=== PATIENT | male | born 1945 | race Two or more races ===

== ENCOUNTER 2016-08-21 20:59 | Inpatient (IN) | payer MEDICARE, OTHER ==
[~2016-08-21] VITALS: Ht 175.3 cm; Wt 81.4 kg
--- NOTE | 2016-08-21 21:05 | NUR ---
To bed 5 a 70 yo male bibra with c/o increased hr and increased bp at home. Upon arrival to er patient is aaox4, no s/s of acute distress. Breathing even and unlabored. On the monitor patient is uncontrolled afib at 120-140, ekg done, SBP is >150, DBP is >100. Patient reported a mild tingling sensation on the left chest at 2/10, however denies while in er. O2 support at 2lpm via nc, pavan well. Encouraged deep breathing. Initiated comfort measures. Gowned. Dr Miller at bedside for eval.
[2016-08-21] MEDS ORDERED: DILTIAZEM HCL 25 MG IV ONE ×2 (21:15→22:26)
[2016-08-21 21:22] LABS: BASOPHILS # (AUTO) 0.1 /CMM (0.0-0.2); BASOPHILS % (AUTO) 0.8 % (0.0-2.0); EOSINOPHILS # (AUTO) 0.3 /CMM (0.0-0.7); EOSINOPHILS % (AUTO) 4.7 % (0.0-6.0); HEMATOCRIT 48 % (39-51); HEMOGLOBIN 16.4 g/dL (13.5-17.5); LYMPHOCYTES # (AUTO) 1.6 /CMM (0.8-4.8); LYMPHOCYTES % (AUTO) 24.1 % (20.0-44.0); MEAN CORPUSCULAR HEMOGLOBIN 32 PG (26.0-33.0); MEAN CORPUSCULAR HGB CONC 34 g/dl (31.0-36.0); MEAN CORPUSCULAR VOLUME 96 fL (80-96); MONOCYTES # (AUTO) 0.5 /CMM (0.1-1.30); NEUTROPHILS # (AUTO) 3.9 /CMM (1.8-8.9); NEUTROPHILS % (AUTO) 62.4 % (43.0-81.0); PLATELET COUNT (AUTO) 191 /CMM (150-450); RDW COEFFICIENT OF VARIATION 12.6 (11.5-15.0); RED BLOOD CELL COUNT(AUTO) 5.07 MIL/uL (4.5-6.0); WHITE BLOOD COUNT (AUTO) 6.4 K/uL (4.3-11.0)
[2016-08-21 21:24] LABS: APPEARANCE,URINE Clear (CLEAR); BILIRUBIN,URINE Negative (NEGATIVE); BLOOD, URINE Trace-intact Ery/uL (NEGATIVE); COLOR,URINE Yellow (YELLOW); KETONES,URINE Negative (NEGATIVE); LEUKOCYTE ESTERASE ,URINE Negative (NEGATIVE); NITRITE, URINE Negative (NEGATIVE); PROTEIN,URINE Negative (NEGATIVE); UGLUCOSE Negative (NEGATIVE); UROBILINOGEN,URINE 0.2 EU/dL (0.2)
[2016-08-21] MEDS ORDERED: DILTIAZEM HCL 50 MG IV IV ONE ×2 (21:30→22:30)
[2016-08-21 21:32] LABS: CARBON DIOXIDE 27 mmol/L (21-32); CHLORIDE 106 mmol/L (98-107); CREATININE 1.3 mg/dL (0.6-1.3); GLUCOSE 142 mg/dL (74-106); POTASSIUM 3.5 mmol/L (3.5-5.1); SODIUM SERUM 140 mmol/L (136-145); UREA NITROGEN, BLOOD 19 mg/dL (7-18)
[2016-08-21 21:34] LABS: INR 1.02 (0.87-1.13); PROTHROMBIN TIME 10.6 SECS (9.5-12.7)
[2016-08-21 21:37] LABS: ADD URINE CULTURE NO; BACTERIA,URINE None seen /HPF (None Seen); SQUAMOUS EPITHELIAL CELL,UR Few /HPF (None Seen); WBC,URINE 0-2 /HPF (0-3)
[2016-08-21 21:39] LABS: TROPONIN I < 0.017 ng/mL (0.00-0.056)
[2016-08-21 21:44] LABS: ALANINE AMINOTRANSFERASE 31 U/L (12-78); ALKALINE PHOSPHATASE 87 U/L (46-116); ASPARTATE AMINOTRANSFERASE 19 U/L (15-37); B-TYPE NATRIURETIC PEPTIDE 186 PG/ML (0-125); BILIRUBIN,DIRECT 0.1 mg/dL (0.0-0.2); BILIRUBIN,TOTAL 0.4 mg/dL (0.2-1.0); TOTAL PROTEIN, SERUM 7.7 g/dL (6.4-8.2)
[2016-08-21] MEDS ORDERED: RANI150T12 PO (23:10)
[2016-08-21] MEDS ORDERED: ATOR20TA PO (23:10)
[2016-08-21] MEDS ORDERED: AMLO10TA2 PO (23:10)
[2016-08-21] MEDS ORDERED: ASPI81TA2 PO (23:10)
[2016-08-21] MEDS ORDERED: DABI150C PO (23:10)
[2016-08-21] MEDS ORDERED: LOSA50TA21 PO (23:10)
[2016-08-21] MEDS ORDERED: LANS30CA56 PO (23:10)
--- NOTE | 2016-08-21 23:14 | NUR ---
report given to Naomi VAZQUEZ for nicole.
--- NOTE | 2016-08-21 23:33 | NUR ---
transported to room 312-2, tele bed via [facility] protocol, no incident noted. no futher complaints.
--- NOTE | 2016-08-21 23:45 | NUR ---
TELE CONSUMER ANALYST INITIAL NOTES ADMIT PT FROM ER VIA JAMES[facility]KYE ACCOMPANIED BY ER NURSE AND TECH. PT IS ALERT ORIENTED X4 , AMBULATORY, WITH HEPLOCK ON HIS RIGHT HAND GAUGE 20 PATENT AND INTACT. AWARE WHERE HE AT. DENIES ANY CHEST PAIN OR ANY DISCOMFORT. HE STATED"I'M OK . I'M JUST HERE FOR OBSERVATION . A-FIB ON TELE MONITOR. HEART RATE 93. KEPT HIM COMFORTABLE AT ALL TIMES. SNACKS OFFERED BUT REFUSED TO EAT JUST WATER. WILL CONTINUE TO MONITOR.
[2016-08-21 23:52] VITALS: BP 143/80
[2016-08-22] VITALS (9 sets, daily range): BP systolic 109–127; BP diastolic 70–86
[2016-08-22] MEDS ORDERED: ONDANSETRON HCL/PF 4 MG/2 ML VIAL IVP PRN (01:30)
[2016-08-22] MEDS ORDERED: ZOLPIDEM TARTRATE 5 MG TABLET PO PRN (01:30)
[2016-08-22] MEDS ORDERED: MAGNESIUM HYDROXIDE 30 ML UDC PO PRN (01:30)
[2016-08-22] MEDS ORDERED: ENOXAPARIN SODIUM 40 MG/0.4 ML DISP.SYRIN SQ SCH ×3 (01:30→21:00)
[2016-08-22] MEDS ORDERED: MAG HYDROX/AL HYDROX/SIMETH 30 ML UDC PO PRN (01:30)
[2016-08-22] MEDS ORDERED: Z GUARD REMEDY 2 OZ OINT TP PRN (01:30)
[2016-08-22] MEDS ORDERED: ACETAMINOPHEN 325 MG TABLET PO PRN (01:30)
[2016-08-22] MEDS ORDERED: ENOXAPARIN SODIUM 40 MG/0.4 ML DISP.SYRIN SQ ONE (01:31)
--- NOTE | 2016-08-22 05:19 | NUR ---
KITCHENWHERE MAKER/NOTES PT SLEEPING COMFORTABLY IN BED WITHOUT ANY ACUTE DISTRESS NOTED. KEPT HIM WARM AND COMFORTABLE AT ALL TIMES. TELE A-FIB HEART 90 PER MONITOR WILL CONTINUE TO MONITOR. PLACE CALL LIGHT AT REACH.
--- NOTE | 2016-08-22 07:07 | NUR ---
TELE SCRIPT COORDINATOR CLOSING NOTES PT AWAKE AND ALERT WATCHING TV AT THIS TIME, DENIES ANY PAIN OR ANY CHEST PRESSURE. DUE MED GIVEN. SLEPT WELL . KEPT HIM WARM AND COMFORTABLE AT ALL TIMES. TELE A-FIB HEART RATE 95 PER MONITOR. ENDORSE TO AM NURSE FOR CONTINUITY OF CARE. PLACE CALL LIGHT AT REACH.
[2016-08-22] MEDS: PANTOPRAZOLE 40 MG TABLET.DR PO SCH (07:30)
[2016-08-22 07:40] LABS: ALBUMIN 3.7 g/dL (3.4-5.0); BILIRUBIN,DIRECT 0.1 mg/dL (0.0-0.2); BILIRUBIN,TOTAL 0.5 mg/dL (0.2-1.0); MAGNESIUM 1.8 mg/dL (1.8-2.4); PHOSPHORUS 4.3 mg/dL (2.5-4.9); TOTAL PROTEIN, SERUM 7.1 g/dL (6.4-8.2)
--- NOTE | 2016-08-22 08:00 | NUR ---
WEB RETAILER AM NOTES RECEIVED PT ALERT ORIENTED X4 , AMBULATORY, WITH HEPLOCK ON HIS RIGHT HAND GAUGE 20 PATENT AND INTACT. HOOKED IVF NS AT 75 ML/HR INFUSING WELL.DENIES ANY CHEST PAIN OR ANY DISCOMFORT. HE STATED"I'M OK . I'M JUST HERE FOR OBSERVATION . A-FIB ON TELE MONITOR. HEART RATE 93. KEPT HIM COMFORTABLE AT ALL TIMES.PT'S HR GOES TO 160-170'S WHEN HE GOES BRP BUT ASYMPTOMATIC AND DENIES ANY DISTRESS OR DISCOMFORT WHEN CHECKED.WILL CONTINUE TO MONITOR.CALL LIGHT PLACED WITHIN REACH.
[2016-08-22] MEDS ORDERED: AMLODIPINE BESYLATE 10 MG TABLET PO SCH (09:00)
[2016-08-22] MEDS ORDERED: DABIGATRAN ETEXILATE MESYLATE 150 MG CAPSULE PO SCH (09:00)
[2016-08-22] MEDS ORDERED: METOPROLOL TARTRATE 25 MG TABLET PO SCH (09:00)
[2016-08-22] MEDS: ASPIRIN 81 MG TAB.CHEW PO SCH (09:28)
[2016-08-22] MEDS: LOSARTAN POTASSIUM 50 MG TABLET PO SCH (09:28)
[2016-08-22] MEDS ORDERED: IV SET PRIMARY PUMP SET 1 EA INFUS.SET MC ONE (10:16)
[2016-08-22] MEDS: IV NS 0.9% 1,000 ML IV PRN (10:29)
[2016-08-22] MEDS: METOPROLOL TARTRATE 25 MG TABLET PO SCH ×2 (13:01→21:18)
--- NOTE | 2016-08-22 13:01 | NUR ---
PRADAXA 150 MG HELD BECAUSE THE PT TOOK HIS LAST DOSE OF PRADAXA 150 MG PILL EARLIER INFRONT OF DR REECE THE CENSUS CLERK.
--- NOTE | 2016-08-22 13:04 | NUR ---
INSTRUCTED PT NOT TO TAKE ANY HOME MEDS WITHOUT TELLING THE NURSE AND HOME MEDS CAN'T BE KEPT AT BEDSIDE AND SHOULD BE BROUGHT TO THE PHARMACIST.PT VERBALIZED UNDERSTANDING OF INSTRUCTIONS GIVEN.
[2016-08-22] MEDS: DABIGATRAN ETEXILATE MESYLATE 75 MG CAPSULE PO SCH (17:59)
--- NOTE | 2016-08-22 18:32 | NUR ---
PT RESTING IN BED DENYING ANY PAIN OR DISTRESS.CALL LIGHT WITHIN REACH.
--- NOTE | 2016-08-22 18:33 | NUR ---
PT HAS NO FURTHER TACHY EPISODES.HEART RATE RANGING FROM 69-70.WILL CONTINUE TO MONITOR.
--- NOTE | 2016-08-22 20:00 | NUR ---
TELE STEM THRESHING MACHINE OPERATOR INITIAL NOTES CHECKED PT AFTER GOT REPORT FROM NURSE PACO [place] PT SITTING ON HIS BED WATCHING TV AT THIS TIMES, WITH IVF OF NS AT 75ML/HR INFUSING ON HIS LEFT HAND PATENT AND INTACT. NO REDNESS NOTED. DENIES ANY CHEST PAIN OR ANY CHEST PRESSURE, HE STATED HE MUCH FEEL BETTER NOW. TELE A-FIB HEART RATE 83 PER MONITOR. KEPT HIM WARM AND COMFORTABLE AT ALL TIMES. PLACE CALL LIGHT AT REACH. WILL CONTINUE TO MONITOR.
[2016-08-22] MEDS ORDERED: ATORVASTATIN 10 MG TABLET PO SCH (22:00)
[2016-08-23] VITALS: BP 117/73
[2016-08-23 04:00] VITALS: BP 127/95
[2016-08-23 04:28] VITALS: BP 127/95
[2016-08-23 06:34] LABS: BASOPHILS # (AUTO) 0.1 /CMM (0.0-0.2); EOSINOPHILS # (AUTO) 0.5 /CMM (0.0-0.7); EOSINOPHILS % (AUTO) 5.9 % (0.0-6.0); HEMATOCRIT 46 % (39-51); LYMPHOCYTES % (AUTO) 24.1 % (20.0-44.0); MEAN CORPUSCULAR HEMOGLOBIN 32 PG (26.0-33.0); MEAN CORPUSCULAR HGB CONC 32 g/dl (31.0-36.0); MEAN CORPUSCULAR VOLUME 98 fL (80-96); MONOCYTES # (AUTO) 0.8 /CMM (0.1-1.30); MONOCYTES % (AUTO) 10.3 % (2.0-12.0); NEUTROPHILS # (AUTO) 4.8 /CMM (1.8-8.9); NEUTROPHILS % (AUTO) 58.7 % (43.0-81.0); PLATELET COUNT (AUTO) 205 /CMM (150-450); RDW COEFFICIENT OF VARIATION 13.6 (11.5-15.0); RED BLOOD CELL COUNT(AUTO) 4.73 MIL/uL (4.5-6.0); WHITE BLOOD COUNT (AUTO) 8.1 K/uL (4.3-11.0)
--- NOTE | 2016-08-23 07:00 | NUR ---
SHIRT FINISHER/CLOSING NOTES PT REMAINS SLEEPING COMFORTABLY IN BED WITHOUT ANY ACUTE DISTRESS NOTED. ALL DUE MEDS GIVEN AND ALL NEEDS MET. TELE A-FIB HEART RATE 83 PER MONITOR. STABLE BERENICE THE NIGHT AND NO DISCOMFORT NOTED. ENDORSE TO AM NURSE FOR CONTINUITY OF CARE. PLACE CALL LIGHT AT REACH.
[2016-08-23] MEDS: IV NS 0.9% 1,000 ML IV PRN (07:06)
[2016-08-23 07:13] LABS: CALCIUM, SERUM 9.1 mg/dL (8.5-10.1); CREATININE 1.4 mg/dL (0.6-1.3)
--- NOTE | 2016-08-23 07:25 | NUR ---
RESEARCH LABORATORY SPECIALIST OPENING RECEIVED PATIENT A/OX4 RESTING AWAKE TO NAME. PATIENT DENIES PAIN, SOB, DIFFICULTY BREATHING. TELE CONTROLLED AFIB 80'S-91. PATIENT STATES NO NEEDS AT THIS TIME AND LEFT WITH CALL LIGHT IN REACH, BED LOWERED AND LOCKED, RAILS UPX3 FOR SAFETY AND WILL ROUND Q2H OR LESS PER NEEDS. PATIENT IS NOT WANTING IVF ATTACHED AT THIS TIME. EDUCATED USAGE AND LAB VALUES PATIENT STATES UNDERSTANDING.
[2016-08-23] MEDS: PANTOPRAZOLE 40 MG TABLET.DR PO SCH (07:30)
[2016-08-23 08:00] VITALS: BP 127/81
[2016-08-23] MEDS: DABIGATRAN ETEXILATE MESYLATE 75 MG CAPSULE PO SCH (08:39)
[2016-08-23] MEDS: METOPROLOL TARTRATE 25 MG TABLET PO SCH (08:40)
[2016-08-23] MEDS: ASPIRIN 81 MG TAB.CHEW PO SCH (08:41)
[2016-08-23] MEDS: LOSARTAN POTASSIUM 50 MG TABLET PO SCH (08:42)
[2016-08-23] MEDS ORDERED: LANS15CA5 PO (08:48)
--- NOTE | 2016-08-23 10:08 | NUR ---
DIE TURNER NOTES PATIENT WAS STRAINING IN RESTROOM AND HR INCREASED TO 150'S-160'S. EDUCATED PATIENT TO NOT STRAIN AND POSSIBLE COMPLICATIONS AND WE CAN GIVE HIM MEDICINE TO HELP WITH CONSTIPATION. PATIENT STATES UNDERSTANDING AND WILL LET ME KNOW IF HE NEEDS ANY MEDICATION
[2016-08-23 12:00] VITALS: BP 128/89
--- NOTE | 2016-08-23 13:00 | NUR ---
WHIPPED TOPPING FINISHER NOTES PER DR MORRIS NO REPLACEMENTS FOR K OR PHOS
--- NOTE | 2016-08-23 14:16 | NUR ---
COOKER SODAADULT SERVICES LIBRARIAN PATIENT STABLE NO COMPLICATIONS NO CHANGES THROUGHOUT DAY. PATIENT EDUCATED ON DC MATERIAL AND STATES UNDERSTANDING. RX GIVEN TO PATIENT. BELONGINGS SIGNED AND ACCOUNTED FOR. PATIENT IV REMOVED PRESSURE AND DRESSING APPLIED NO BLEEDING. PATIENT STABLE ALL DUE MEDS GIVEN AND ALL NEEDS MET. [facility] CALLED FOR PATIENT FOR TRANSPORT HOME. ASSISTED PATIENT TO [facility] IN STABLE CONDITION.
== END 2016-08-23 14:20 | disposition home or self-care (01) | DRG 309 ==
LOC: ER 21:01 → EDBD 22:57 → TELE 22:57
PROVIDERS: ADMIT Nurse Practitioner Acute Care; ATTEND Nurse Practitioner Acute Care
DX: I48.0 Paroxysmal atrial fibrillation (principal); D68.69 Other thrombophilia; I50.32 Chronic diastolic (congestive) heart failure; E78.5 Hyperlipidemia, unspecified; I25.10 Atherosclerotic heart disease of native coronary artery without angina pectoris; K21.9 Gastro-esophageal reflux disease without esophagitis; Z86.73 Personal history of transient ischemic attack (TIA), and cerebral infarction without residual deficits; Z96.611 Presence of right artificial shoulder joint; K40.90 Unilateral inguinal hernia, without obstruction or gangrene, not specified as recurrent; I11.0 Hypertensive heart disease with heart failure; Z79.01 Long term (current) use of anticoagulants; Z98.61 Coronary angioplasty status
CPT/HCPCS: 36415; 71010-TC; 80048-TC; 80061-TC; 80076-TC; 81000-TC; 83735-TC; 83880; 84100-TC; 84443-TC; 84484-TC; 85025-TC; 85730-TC; 93307-TC; A4606; J1650; J3490; J7030; Z7610

== ENCOUNTER 2018-02-09 19:58 | Emergency (ER) | payer MEDICARE, OTHER ==
[~2018-02-09] VITALS: Ht 175.3 cm; Wt 82.6 kg
[~2018-02-09 19:58] MED LIST: AMLO10TA6 PO; ASPI-1169 PO; ATOR20TA PO; DABI150C PO; LANS15CA13 PO; LANS30CA56 PO; LOSA50TA21 PO; RANI150T43 PO
[2018-02-09] MEDS ORDERED: ONDANSETRON HCL/PF 4 MG/2 ML VIAL IVP ONE (21:00)
[2018-02-09] MEDS ORDERED: KETOROLAC TROMETHAMINE INJ 30 MG/ML VIAL IV ONE (21:00)
[2018-02-09] MEDS ORDERED: IV NS 0.9% 1,000 ML BAG IV ONE (21:00)
[2018-02-09 21:02] LABS: BASOPHILS # (AUTO) 0.1 /CMM (0.0-0.2); BASOPHILS % (AUTO) 1.1 % (0.0-2.0); EOSINOPHILS % (AUTO) 0.4 % (0.0-6.0); HEMATOCRIT 48 % (39-51); HEMOGLOBIN 16.3 g/dL (13.5-17.5); LYMPHOCYTES # (AUTO) 0.2 /CMM (0.8-4.8); LYMPHOCYTES % (AUTO) 2.7 % (20.0-44.0); MEAN CORPUSCULAR HGB CONC 34 g/dl (31.0-36.0); MEAN CORPUSCULAR VOLUME 98 fL (80-96); MONOCYTES # (AUTO) 0.2 /CMM (0.1-1.30); MONOCYTES % (AUTO) 2.8 % (2.0-12.0); NEUTROPHILS # (AUTO) 8.3 /CMM (1.8-8.9); PLATELET COUNT (AUTO) 151 /CMM (150-450); RDW COEFFICIENT OF VARIATION 13.2 (11.5-15.0); RED BLOOD CELL COUNT(AUTO) 4.94 MIL/uL (4.5-6.0); WHITE BLOOD COUNT (AUTO) 8.8 K/uL (4.3-11.0)
[2018-02-09] MEDS ORDERED: ONDANSETRON HCL/PF 4 MG/2 ML VIAL ONE (21:03)
[2018-02-09] MEDS ORDERED: KETOROLAC TROMETHAMINE 15 MG/ML VIAL ONE (21:03)
[2018-02-09 21:12] LABS: CALCIUM, SERUM 9.5 mg/dL (8.5-10.1); CARBON DIOXIDE 24 mmol/L (21-32); CHLORIDE 106 mmol/L (98-107); CREATININE 1.6 mg/dL (0.6-1.3); GLUCOSE 126 mg/dL (74-106); POTASSIUM 3.8 mmol/L (3.5-5.1); SODIUM SERUM 141 mmol/L (136-145); UREA NITROGEN, BLOOD 20 mg/dL (7-18)
[2018-02-09 21:18] LABS: ALANINE AMINOTRANSFERASE 34 U/L (12-78); ALBUMIN 4.1 g/dL (3.4-5.0); ALKALINE PHOSPHATASE 99 U/L (46-116); ASPARTATE AMINOTRANSFERASE 27 U/L (15-37); BILIRUBIN,DIRECT 0.2 mg/dL (0.0-0.2); BILIRUBIN,TOTAL 1.2 mg/dL (0.2-1.0); LIPASE 143 U/L (73-393); TOTAL PROTEIN, SERUM 7.8 g/dL (6.4-8.2)
[2018-02-09 22:53] VITALS: BP 137/84
--- NOTE | 2018-02-09 22:53 | NUR ---
Patient discharged to home in stable condition. Written and verbal after care instructions given. Patient verbalizes understanding of instruction. Seen and eval by ER .
--- NOTE | 2018-02-09 22:53 | NUR ---
IV removed. Catheter intact and site benign. Pressure and 4x4 applied to site. No bleeding noted. Patient discharged to home in stable condition. Written and verbal after care instructions given. Patient verbalizes understanding of instruction. Patient ambulatory with a steady gait.
== END 2018-02-09 22:54 | disposition home or self-care (01) ==
LOC: ER 20:10
DX: E86.0 Dehydration (principal); R11.2 Nausea with vomiting, unspecified; R19.7 Diarrhea, unspecified; R10.84 Generalized abdominal pain; I10 Essential (primary) hypertension; K21.9 Gastro-esophageal reflux disease without esophagitis; I48.91 Unspecified atrial fibrillation; E78.5 Hyperlipidemia, unspecified; Z96.611 Presence of right artificial shoulder joint; Z86.73 Personal history of transient ischemic attack (TIA), and cerebral infarction without residual deficits; Z95.5 Presence of coronary angioplasty implant and graft; Z79.82 Long term (current) use of aspirin
CPT/HCPCS: 36415; 74176; 80048; 80076; 83690; 85025; 93005; 96361; 96374; 96375; 99285; A4606; J1885; J2405; J7030; Z7610